=== PATIENT | male | born 1955 | race Hispanic/Latino ===

== ENCOUNTER 2016-11-03 19:56 | Emergency (ER) | payer OTHER ==
[~2016-11-03] VITALS: Ht 163.8 cm; Wt 81.6 kg
[2016-11-03 20:41] LABS: ABSOLUTE BASOPHIL COUNT 0 /CUMM (0.0-0.2); ABSOLUTE EOSINOPHIL COUNT 0.4 /CUMM (0.0-0.7); ABSOLUTE GRANULOCYTE CT 3.2 /CUMM (1.4-6.5); ABSOLUTE LYMPH COUNT 2.5 /CUMM (1.2-3.4); ABSOLUTE MONOCYTE COUNT 0.3 /CUMM (0.10-0.60); BASOPHIL % 0.5 % (0.0-2.0); EOSINOPHIL % 6.5 % (0-5); GRANULOCYTE % 49.4 % (42.2-75.2); HEMATOCRIT 44.1 % (42-52); MEAN CORPUSCULAR HGB 31.4 PG (27.0-31.0); MEAN CORPUSCULAR HGB CONC 34.1 G/DL (33.0-37.0); MEAN CORPUSCULAR VOLUME 92.1 FL (80.0-94.0); MEAN PLATELET VOLUME 9.4 FL (7.4-10.4); PLATELET COUNT 251 /CUMM (130-400); RBC DISTRIBUTION WIDTH 13.5 % (11.5-14.5); RED BLOOD CELL CT 4.79 /CUMM (4.70-6.10); WHITE BLOOD CELL COUNT 6.4 /CUMM (4.8-10.8)
--- NOTE | 2016-11-03 23:55 | ED GI/GU/ABDOMINAL COMPLAINT ---
History of Present Illness General Chief Complaint: General Adult Stated Complaint: RECTAL BLEEDING, ABD PAIN, X 1 DAY Source: patient, family, old records Exam Limitations: no limitations Vital Signs & Intake/Output Vital Signs & Intake/Output Vital Signs Date Time Temp Pulse Resp B/P Pulse O2 O2 Flow FiO2 Ox Delivery Rate 11/04 0152 97.2 87 16 135/89 98 Room Air 11/03 2319 96.1 86 16 133/90 97 Room Air 11/03 2009 98.6 89 18 164/87 98 Room Air ED Intake and Output 11/04 0000 11/03 1200 Intake Total Output Total Balance Patient 180 lb Weight Allergies Coded Allergies: MDX - PCN (penicillin) (PCN (PENICILLIN)) (Severe, RASH, ITCHING 04/23/12) Reconcile Medications Anusol Hc (Anusol-Hc) 25 MG SUPP.RECT 1 SUP RC BID hemorrhoids Hyoscyamine Sulfate (Levsin-Sl) 0.125 MG TAB.SUBL 1-2 TAB SL Q4P PRN abdominal cramps Triage Note: PT TO ED C/O LLQ PAIN FOR 15 DAYS (BECAME SHARP JUST TODAY) AND RECTAL BLEEDING TODAY (ON TOILET PAPER) IS [place] SPEAKING PMH OF APPENDECTOMY Triage Nurses Notes Reviewed? yes Onset: several days Duration: day(s):, constant, continues in ED, getting worse Timing: recent history Quality/Severity: aching, moderate Location: left lower quadrant Radiation: no radiation Activities at Onset: none Prior Abdominal Problems: none Past Sexual History: Unobtainable at this time Modifying Factors: Worsens With: movement, palpation. Associated Symptoms: abdominal pain HPI: 1 month prior to admission reports having an appointment with GI who said he should have a surgery evaluation for a left perirectal/gluteal lesion. Several days prior to admission patient complains of left lower quadrant sharp pain occurring intermittently mild to moderate in severity nonradiating. Prior to admission he reports having blood in his stool with history of internal hemorrhoids. He denies fever chills nausea vomiting diarrhea chest pain cough shortness of breath headache dysuria rash. Past History Travel History Traveled to [place] past 21 day No Medical History Any Pertinent Medical History? see below for history Neurological: NONE EENT: NONE Cardiovascular: NONE Respiratory: NONE Gastrointestinal: NONE Hepatic: NONE Renal: NONE Musculoskeletal: NONE Psychiatric: NONE Endocrine: NONE Surgical History Surgical History: non-contributory Psychosocial History Who do you live with Family What is your primary language Persian Tobacco Use: Quit >30 days ago ETOH Use: denies use Illicit Drug Use: denies illicit drug use Family History Hx Contributory? No Review of Systems Review of Systems Constitutional: Reports: no symptoms. EENTM: Reports: no symptoms. Respiratory: Reports: no symptoms. Cardiovascular: Reports: no symptoms. GI: Reports: see HPI, abdominal pain, bloody stool. Genitourinary: Reports: no symptoms. Musculoskeletal: Reports: no symptoms. Skin: Reports: see HPI, lesions. Neurological/Psychological: Reports: no symptoms. Hematologic/Endocrine: Reports: no symptoms. Immunologic/Allergic: Reports: no symptoms. All Other Systems: Reviewed and Negative Physical Exam Physical Exam General Appearance: well developed/nourished, alert, awake, anxious, mild distress Head: atraumatic, normal appearance Eyes: Bilateral: normal appearance, PERRL, EOMI, normal inspection. Ears, Nose, Throat, Mouth: hearing grossly normal, moist mucous membrane Neck: normal inspection, supple, full range of motion, normal alignment Respiratory: normal breath sounds, chest non-tender, no respiratory distress, quiet respiration, lungs clear Cardiovascular: regular rate/rhythm, normal peripheral pulses, norml femoral pulses equa Peripheral Pulses: 4+ carotid (R), 4+ carotid (L) Gastrointestinal: normal bowel sounds, soft, non-tender, no organomegaly Rectal: heme-positive exam glove no stool, left perirectal/gluteal lesion 0.25 cm resembling puncture wound possible fistula opening Male Genitals: normal genitalia Back: normal inspection, normal range of motion Extremities: normal range of motion, no ligament instability Neurologic/Psych: no motor/sensory deficits, awake, alert, oriented x 3, normal gait, normal mood/affect, 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 No Severe Sepsis Present: No Septic Shock Present: No Progress Differential Diagnosis: diverticulitis, gastritis, pancreatitis Plan of Care: Orders Procedure Date/time Status COMPREHENSIVE METABOLIC PANEL 11/03 2016 Complete CBC WITHOUT DIFFERENTIAL 11/03 2016 Complete Laboratory Tests 11/03/162020: Anion Gap 12, Estimated GFR > 60, BUN/Creatinine Ratio 10.9, Glucose 136 H, Calcium 9.3, Total Bilirubin 1.1, AST 25, ALT 36, Alkaline Phosphatase 77, Total Protein 7.6, Albumin 4.4, Globulin 3.2, Albumin/Globulin Ratio 1.4, CBC w Diff NO MAN DIFF REQ, RBC 4.79, MCV 92.1, MCH 31.4 H, RDW 13.5, MPV 9.4, Gran % 49.4 , Lymphocytes % 38.2, Monocytes % 5.4, Eosinophils % 6.5 H, Basophils % 0.5, Absolute Granulocytes 3.2, Absolute Lymphocytes 2.5, Absolute Monocytes 0.3, Absolute Eosinophils 0.4, Absolute Basophils 0, PUBS MCHC 34.1 Diagnostic Imaging: Viewed by Me: CT Scan. Discussed w/RAD: CT Scan. Radiology Impression: Equivocal urinary bladder wall thickening, though not significantly changed from prior exam from 2011. Correlate with physical exam and urinalysis if deemed clinically appropriate. Otherwise, no evidence for acute abdominal or pelvic inflammatory or infectious processes. 2 mm nonobstructive right renal calculus. Initial ED EKG: normal axis, none Departure Departure Time of Disposition: 131 Disposition: HOME OR SELF CARE Condition: Stable Clinical Impression Primary Impression: Abdominal pain Qualifiers: Abdominal location: left lower quadrant Qualified Code: R10.32 - Left lower quadrant pain Secondary Impressions: Hemorrhoids Qualifiers: Hemorrhoid type: unspecified Qualified Code: K64.9 - Unspecified hemorrhoids Referrals: JOHNATHON CHEN DO,BRYAN ESQUIVEL MD,NIMISHA (PCP/Family) Departure Forms: Customer Survey General Discharge Information Prescriptions: Current Visit Scripts Anusol Hc (Anusol-Hc) 1 SUP RC BID #28 SUP Hyoscyamine Sulfate (Levsin-Sl) 1-2 TAB SL Q4P PRN abdominal cramps #60 TAB
--- NOTE | 2016-11-04 01:16 | CT SCAN REPORT ---
EXAMINATION: CT ABDOMEN AND PELVIS WITH CONTRAST CLINICAL INFORMATION: Left lower quadrant pain. Bright red blood per rectum. COMPARISON: 09/02/2011. TECHNIQUE: Contiguous axial thin section helical images of the abdomen and pelvis were performed following the administration of oral contrast and 94 mL of intravenous Optiray 320. The data set was reformatted in the coronal and sagittal planes and reviewed on an independent workstation. DLP: 375 mGy-cm. FINDINGS: There is mild dependent bibasilar atelectasis. The visualized lung bases are otherwise clear. The visualized portions of the heart are unremarkable. The liver is of normal size and attenuation without concerning focal lesions nor intrahepatic biliary ductal dilation. There is a stable 18 mm cyst within the lateral right lobe of the liver. A normal gallbladder is identified. There is no wall thickening or discernible pericholecystic fluid. The spleen, pancreas, adrenal glands are unremarkable. Both kidneys are of normal size and attenuation without hydronephrosis. There is a 2 mm nonobstructive calculus within the interpole region. Following the administration of IV contrast, prompt symmetric nephrograms are displayed. There is no abdominal free fluid. There is neither mesenteric nor retroperitoneal lymphadenopathy. Normal opacified loops of small and large bowel are identified. There is no pelvic free fluid.. The urinary bladder is partially filled. There is equivocal wall thickening, though unchanged from prior CT. The prostate gland is enlarged. There is neither pelvic nor inguinal lymphadenopathy. Bone windows: Neither sclerotic nor lytic bone lesions are identified. IMPRESSION: Equivocal urinary bladder wall thickening, though not significantly changed from prior exam from 2012. Correlate with physical exam and urinalysis if deemed clinically appropriate. Otherwise, no evidence for acute abdominal or pelvic inflammatory or infectious processes. 2 mm nonobstructive right renal calculus.
[2016-11-04] MEDS ORDERED: LEVSIN-SL0.125 MG SL (01:34)
[2016-11-04] MEDS ORDERED: ANUSOL-HC25 M1 RC (01:34)
[2016-11-04 01:52] VITALS: BP 135/89
== END 2016-11-04 01:52 ==
LOC: ERH 19:56
PROVIDERS: Emergency Medicine
DX: K64.9 Unspecified hemorrhoids (principal); R10.32 Left lower quadrant pain
CPT/HCPCS: 74177